=== PATIENT | female | born 1945 | race Caucasian/White ===

== ENCOUNTER 2016-12-05 18:55 | Emergency (ER) | payer MEDICARE ==
[~2016-12-05] VITALS: Ht 154.9 cm; Wt 55.5 kg
[~2016-12-05 18:55] MED LIST: ALBU8.5H2 INHALATION; ASCO100089 PO; ASPI-973 PO; CARV6.252 PO; CINN500C14 PO; CLOP75TA28 PO; FURO40TA4 PO; GARL1CAP7 PO; GLIM1TAB PO; LAN125 PO; LIP40 PO; LISI-571 PO; MAGN250T29 PO; METF-496 PO; MULT-1018 PO; NICO1PAT5 TOPICAL; OMEG1CAP56 PO; POLY17PO6 PO; PSYL1PAC10 PO; VITA-251 PO
[2016-12-05 18:58] VITALS: BP 144/64; PULSE 82; RESP 18; O2SAT 95
--- NOTE | 2016-12-05 20:33 | DRSVH ---
PROCEDURE: X-RAY RIGHT FOOT COMPLETE, MINIMUM THREE VIEWS ([id number]) INDICATIONS: Fall TECHNIQUE: 3 views of the foot were acquired. COMPARISON: None. FINDINGS: Bones: No fractures or dislocations. No suspicious bony lesions. Soft tissues: No tibiotalar joint effusion. Achilles tendon appears normal. IMPRESSION: No acute fracture. No osseous lesion. If clinical suspicion and/or symptoms persist, fur ther assessment with repeat plainfilms, or advanced imaging (e.g., CT, MRI, or bone scan) may be help ful for further assessment. Dictated by: Jada Hopson M.D. on 12/05/2016 at 20:31 Approved by: Jada Hopson M.D. on 12/05/2016 at 20:32
--- NOTE | 2016-12-05 21:26 | ED.REPORT ---
HPI-Extremity Problem Lower Date of Service December 05, 2016 ED Provider: Dhiraj Duffy MD Pt is a 71 year old female with a hx of DM, HTN and a stent presenting to the ED post GLF yesterday complaining of right foot pain and swelling. She is unable to wear a normal shoe due to swelling, and reports that when she fell, she landed on her left knee and her toes bent upward. She denies any chest pain or any other symptoms at this time. Nursing Notes Stated Complaint: RIGHT FOOT PAIN AFTER FALL Chief Complaint: Extremity Trauma Nursing Notes Reviewed: Yes Allergies: Coded Allergies: No Known Allergies (Verified Allergy, Unknown, 08/19/15) Scheduled Albuterol HFA (Proair HFA) 8.5 Gm Hfa.aer.ad 2 PUFFS INHALATION Q4H Ascorbic Acid (Vitamin C) 1,000 Mg Tab.chew 1,000 MG PO DAILY Aspirin (Aspirin) 81 Mg Tablet 81 MG PO DAILY Atorvastatin (Lipitor) 40 Mg Tablet 40 MG PO DAILY Carvedilol (Carvedilol) 6.25 Mg Tablet 6.25 MG PO BIDWM Clopidogrel (Clopidogrel) 75 Mg Tablet 75 MG PO DAILY Digoxin (Lanoxin) 0.125 Mg Tablet 0.125 MG PO DAILY@12 Furosemide (Furosemide) 40 Mg Tablet 40 MG PO DAILY Garlic (Garlic) 1 Each Capsule 1 EACH PO DAILY Glimepiride (Glimepiride) 1 Mg Tablet 2 MG PO breakfast Glimepiride (Glimepiride) 1 Mg Tablet 3 MG PO dinner Lisinopril (Lisinopril) 5 Mg Tablet 5 MG PO DAILY Magnesium Oxide (Magnesium) 250 Mg Tablet 250 MG PO DAILY Metformin ER (Metformin ER) 1,000 Mg Tablet 1,000 MG PO BIDWM Multivitamin (Multi Vitamin Daily) 1 Each Tablet 1 EACH PO DAILY [place]-3 Fatty Acids/Fish Oil ([place] 3 1,000 mg Softgel) 1 Each Capsule 1 EACH PO DAILY Polyethylene Glycol 3350 (Miralax) 17 Gm Powd.pack 17 GM PO DAILY Psyllium Seed (with Sugar) (Metamucil Packet) 1 Each Packet 1 EACH PO DAILY Vitamin E (Dl,Tocopheryl Acet) (Vitamin E) 1,000 Unit Capsule 1,000 UNIT PO DAILY Scheduled PRN Nicotine 14 mg/24 hr Patch (Nicotine 14 mg/24 hr Patch) 1 Patch Patch 1 PATCH TOPICAL DAILY PRN PRN urge to smoke Tramadol (Tramadol) 50 Mg Tablet 100 MG PO TID PRN PRN For Pain Miscellaneous Medications Cinnamon Bark (Cinnamon) 500 Mg Capsule 500 MG PO General Time Seen by MD: 21:25 Chief Complaint Foot injury right Hx Obtained From: Patient Arrived By: Walk-in Onset Occurred: Yesterday Symptom Duration: Since onset Caused by: Fall on ground Location: : Foot right Quality: Painful Severity: Current: Mild Severity: Maximum: Moderate Associated with: Reports: Swelling Recent Healthcare: No recent doctor visit, No recent hospitalization Similar Sx Previous: No Past Medical History Past Medical History hypertension GERD arthritis anxiety diabetes Past Surgical History cardiac stent Reports: Tubal ligation Smoking History Former Smoker Social History Alcohol Use: Denies alcohol use Drug Use: Denies drug use Ambulatory Status Independent Review of Systems Musculoskeletal: Reports: Extremity pain, Extremity swelling Complete sys rev & neg: except as marked. Respiratory: Denies: Shortness of breath Cardiovascular: Denies: Chest pain GI: Denies: Vomiting Physical Exam Initial Vital Signs Vital Signs (First) Date Time Temp Pulse Resp B/P Pulse Ox O2 Delivery O2 Flow Rate FiO2 12/05/16 18:58 37.5 82 18 144/64 95 Room Air Initial VS: Reviewed, Vital signs normal General/Constitutional: Well-developed, Well-nourished Head / Eyes: Atraumatic, Normocephalic, PERRL ENT: Mucous membranes moist, Conjunctiva normal, No scleral icterus Respiratory: No respiratory distress Abdomen / GI: No distention Upper Extremities: Vascular intact, Neuro intact, No swelling, No tenderness Skin: Warm, Dry, No cyanosis Neurologic: Alert, Oriented, Nonfocal Psychiatric: Mood/affect normal, Behavior normal, Normal thought content Ankle / Foot: Neurologic intact, Vascular intact Mild diffuse swelling to the right foot. No ecchymosis. Tenderness around medial aspect and along long arch. Re-Eval/Medical Decision Med Decision/Clinical Course Mildly swollen midfoot with no evidence of fracture or dislocation. Much more comfortable with a cast shoe. Re-Evaluation/Progress #1: Time of Eval: 21:31 Patient Status: Condition improved Re-Evaluation/Progress Note: Discussed xray results. Re-Evaluation/Progress #2: Time of Eval: 21:49 Patient Status: Condition improved Re-Evaluation/Progress Note: Pt feeling much better with the cast shoe. Discussed plan for discharge. Pt understands and agrees. Counseled Regarding: Diagnosis, Lab results, Need for follow-up, When/why to return to ED Discharge & Departure Impression: Primary Impression: Right foot sprain Encounter type: initial encounter Qualified Code: S93.601A - Unspecified sprain of right foot, initial encounter Disposition: Home Discharge Condition All VS Reviewed: Yes Condition: Improved Patient Instructions: Foot Sprain (ED) Additional Instructions: There is no fracture or dislocation on the x-ray. It appears that you have sprained your foot by bending it further than it was supposed to bend very. Wear the cast shoe as needed. Tylenol as needed. Tramadol (Ultram) 100 mg 3 times daily as needed for severe pain, #1 given in the emergency room and #12 prescription written. Referrals: Lara Otero DO (PCP) Rahat Attestation Portions of this note were transcribed by Jennifer Vidales. I, Dr. Duffy personally performed the history, physical exam and medical decision-making; I reviewed and confirmed the accuracy of the information in the transcribed note. Signed by: Rahat Singleton, 12/05/2016 at 2009. copies to: Lara Otero Howard L MD December 05, 2016 21:26 JENNIFER VIDALES December 05, 2016 21:31
[2016-12-05] MEDS ORDERED: TRAM50TA2 PO (21:45)
[2016-12-05 22:08] VITALS: BP 121/62; PULSE 77; RESP 17; O2SAT 95
== END 2016-12-05 22:09 | disposition home or self-care (01) ==
LOC: SED 18:55
DX: S93.691A Other sprain of right foot, initial encounter (principal); W18.30XA Fall on same level, unspecified, initial encounter; Y93.9 Activity, unspecified; Y92.009 Unspecified place in unspecified non-institutional (private) residence as the place of occurrence of the external cause; Y99.8 Other external cause status; E11.9 Type 2 diabetes mellitus without complications; I10 Essential (primary) hypertension; K21.9 Gastro-esophageal reflux disease without esophagitis; F41.9 Anxiety disorder, unspecified; Z87.891 Personal history of nicotine dependence; Z95.5 Presence of coronary angioplasty implant and graft; Z79.82 Long term (current) use of aspirin; Z79.84 Long term (current) use of oral hypoglycemic drugs